=== PATIENT | female | born 1985 | race Caucasian/White ===

== ENCOUNTER 2023-08-17 16:36 | Emergency (ER) | payer MEDICAID ==
[~2023-08-17] VITALS: Ht 162.6 cm; Wt 86.2 kg
[2023-08-17 16:59] VITALS: TEMP 98.4; O2SAT 100
[2023-08-17 18:35] VITALS: BP 111/71; PULSE 70; RESP 18
== END 2023-08-17 18:38 | disposition home or self-care (01) ==
LOC: ER 16:36
DX: R51.9 Headache, unspecified (principal); B34.9 Viral infection, unspecified
CPT/HCPCS: 99281